=== PATIENT | female | born 1990 | race Caucasian/White ===

== ENCOUNTER 2022-09-23 20:38 | Outpatient (CLI) | payer OTHER | END 2022-09-23 23:00 | disposition home or self-care (01) | LOC: LAB 20:38 | DX: Z20.828 Contact with and (suspected) exposure to other viral communicable diseases (principal); Z20.818 Contact with and (suspected) exposure to other bacterial communicable diseases ==

== ENCOUNTER → 2025-01-13 | Emergency (ER) | payer OTHER ==
[~2025-01-13] VITALS: Ht 160 cm; Wt 52.2 kg
== END | disposition home or self-care (01) ==
LOC: ER 14:48
DX: S00.81XA Abrasion of other part of head, initial encounter (principal); W18.39XA Other fall on same level, initial encounter; Y93.89 Activity, other specified; Y92.413 State road as the place of occurrence of the external cause

== ENCOUNTER 2025-01-20 13:26 | Emergency (ER) | payer OTHER ==
[~2025-01-20] VITALS: Ht 160 cm; Wt 49.9 kg
== END 2025-01-20 20:29 | disposition left against medical advice (07) ==
LOC: ER 13:26
DX: Z53.21 Procedure and treatment not carried out due to patient leaving prior to being seen by health care provider (principal)